=== PATIENT | male | born 1975 | race Caucasian/White ===

== ENCOUNTER → 2018-08-03 | Outpatient (CLI) | payer OTHER ==
--- NOTE | 2018-08-03 09:14 | XR ---
EXAMINATION TYPE: XR KUB DATE OF EXAM: 08/03/2018 COMPARISON: NONE HISTORY: Follow-up kidney stones TECHNIQUE: One view abdominal series FINDINGS: The osseous structures are intact. The bowel gas pattern is nonspecific. Renal outlines are limited by overlying bowel content. Right kidney: Right renal outline is obscured by overlying bowel content with at least 2 tiny punctat e 1 to 2 mm calcifications suspected overlying the lower pole. Left kidney: No definite calcifications are seen. There is a calcific density lateral to the L4 trans verse process on the left which is felt to be below the renal outline and lateral to the expected cou rse of the ureter. Pelvis: Multiple pelvic calcifications are seen. Lesions on the right are felt to be compatible phleb oliths. There is a 2 mm calcification the region of the left UVJ. Next IMPRESSION: 1. Nonspecific abdomen. 2. Findings are suspicious for a lower pole right renal calculus. Calcific density on the left appear s to be inferior to the left renal outline. 3. Possible 2 mm left UVJ calcification.
== END | disposition home or self-care (01) ==
LOC: RADXRMAIN 08:49
PROVIDERS: ATTEND Urology
DX: N20.1 Calculus of ureter (principal)
CPT/HCPCS: 74018

== ENCOUNTER → 2018-09-15 | Outpatient (CLI) | payer OTHER ==
--- NOTE | 2018-09-15 09:38 | XR ---
EXAMINATION TYPE: XR KUB DATE OF EXAM: 09/15/2018 COMPARISON: 08/03/2018 INDICATION: Ureteral calculus TECHNIQUE: Single view abdomen supine view FINDINGS: There is a normal bowel gas pattern. Psoas margins are normal. No organomegaly is present. Phleboliths within the pelvis. No suspicious calcification along the expected ureteral course is evid ent. A tiny calcification in left hemipelvis could be a distal ureteral stone was present previously and is stable in position and size. IMPRESSION: 1. Findings appear stable over the interval. Distal left ureteral vesicle junction stone is not exclu ded. Phleboliths within the differential. Stable.
--- NOTE | 2018-09-15 11:02 | US ---
EXAMINATION TYPE: US kidneys/renal and bladder DATE OF EXAM: 09/15/2018 COMPARISON: NONE CLINICAL HISTORY: N20.1 calculas of kidney R93.4. History of kidney stones and hydronephrosis, left p elvic pain, frequent urination EXAM MEASUREMENTS: Right Kidney: 10.5 x 5.2 x 5.0 cm Left Kidney: 10.9 x 5.9 x 6.6 cm Right Kidney: 0.4cm echogenic focus inferior pole compatible with a renal stone Left Kidney: mild hydronephrosis Bladder: wnl Bilateral Jets seen: yes IMPRESSION: 1. Nonobstructing inferior pole right renal stone. 2. Mild left hydronephrosis.
== END | disposition home or self-care (01) ==
LOC: RADUSWWP 08:13
PROVIDERS: ATTEND Urology
DX: N13.2 Hydronephrosis with renal and ureteral calculous obstruction (principal)
CPT/HCPCS: 74018; 76770

== ENCOUNTER → 2022-09-15 | Outpatient (CLI) | payer OTHER ==
--- NOTE | 2022-09-15 15:10 | XR ---
EXAMINATION TYPE: XR KUB DATE OF EXAM: 09/15/2022 10:23 AM INDICATION: Patient age:Male; 47 years old; Reason for study: N20.0; COMPARISON: 09/15/2017 TECHNIQUE: One radiographic view of the abdomen was obtained. FINDINGS: The bowel gas pattern is nonspecific without dilated loops of small or large bowel. There i s no evidence for organomegaly or pneumoperitoneum. The osseous structures are intact. Fecal materi al and gas are demonstrated throughout the colon and rectum. Multiple calcifications project over the lower pelvis. One measuring 4 mm is new from prior in 2019. IMPRESSION: Multiple calcifications project over the lower pelvis. At least one is new measuring up to 4 mm. Thes e may or may not be within the collecting system. Complete evaluation with CT renal stone protocol co uld provide further characterization and localization.
== END | disposition home or self-care (01) ==
LOC: RADXRMAIN 10:10
PROVIDERS: ATTEND Urology
DX: R31.1 Benign essential microscopic hematuria (principal); N28.89 Other specified disorders of kidney and ureter
CPT/HCPCS: 74018

== ENCOUNTER → 2022-10-12 | Outpatient (CLI) | payer OTHER ==
--- NOTE | 2022-10-12 11:38 | XR ---
EXAMINATION TYPE: XR KUB DATE OF EXAM: 10/12/2022 Comparison: 09/15/2022 Clinical History: 47-year-old male N20.1 CALCULUS OF URETER Findings: Rounded calcifications in the pelvis. An elongated 4 mm calcification may have moved slightly more me dially compared to prior exam. Nonobstructive bowel gas pattern. No significant stool burden. Impression: An elongated 4 mm calcification in the right side of the pelvis may have moved slightly.
== END | disposition home or self-care (01) ==
LOC: LABWHC1 08:12
PROVIDERS: ATTEND Urology
DX: M61.9 Calcification and ossification of muscle, unspecified (principal)
CPT/HCPCS: 74018

== ENCOUNTER → 2024-05-09 | Outpatient (CLI) | payer OTHER ==
[2024-05-09 16:54] LABS: BUN/Creat Ratio 15.44 Ratio (12.00-20.00); Blood Urea Nitrogen 13.9 mg/dL (9.0-27.0); Calcium 9.4 mg/dL (8.7-10.3); Chloride 102 mmol/L (96-109); Glucose 146 mg/dL (70-110); Potassium 4.6 mmol/L (3.5-5.5); Sodium 138 mmol/L (135-145)
[2024-05-09 17:23] LABS: HCT 46.4 % (39.6-50.0); HGB 15.6 g/dL (13.0-17.0); MCH 33.2 pg (27.0-32.0); MCHC 33.6 g/dL (32.0-37.0); MCV 98.7 FL (80.0-97.0); Mean Platelet Volume 10.8 FL (9.5-12.2); NRBC Per 100 WBC 0 X 10*3/uL (0.00-0.01); Platelet Count 212 X 10*3/uL (140-440); RDW 12.2 % (11.5-14.5); WBC 5.75 X 10*3/uL (4.50-10.00)
== END | disposition home or self-care (01) ==
LOC: LABPAT 10:29
PROVIDERS: ATTEND Urology
DX: Z01.818 Encounter for other preprocedural examination (principal)
CPT/HCPCS: 80048; 85027

== ENCOUNTER → 2024-05-09 | Outpatient (CLI) | payer OTHER ==
--- NOTE | 2024-05-09 08:44 | XR ---
EXAMINATION TYPE: XR KUB DATE OF EXAM: 05/09/2024 8:38 AM COMPARISON: 10/12/2022 CLINICAL INDICATION: Male, 49 years old with history of N20.1 CALCULUS OF URETER; [facility] TECHNIQUE: One radiographic view of the abdomen was obtained. FINDINGS: The bowel gas pattern is nonspecific without dilated loops of small or large bowel. . Fecal material and gas are demonstrated throughout the colon and rectum. There is no evidence for organome erick or pneumoperitoneum. No acute osseous process. No abnormal calcifications are present. IMPRESSION: Nonspecific bowel gas pattern without radiographic evidence for acute process. [facility], , 05/09/2024 8:42 AM
== END | disposition home or self-care (01) ==
LOC: RADXRMAIN 08:20
PROVIDERS: ATTEND Urology
DX: N20.1 Calculus of ureter (principal)
CPT/HCPCS: 74018

== ENCOUNTER 2024-05-10 09:46 | Day surgery (SDC) | payer OTHER ==
--- NOTE | 2024-05-09 20:01 | P.GSHP ---
History of Present Illness H&P Date: 05/09/24 Chief Complaint: Right renal colic The patient is a 49-year-old white male with a history of calcium oxalate urolithiasis. For the past month, he has experienced intermittent flank pain radiating to the right testicle. This has been associated with nausea and vomiting. He has recently experienced penile discomfort at the end of micturition. KUB x-ray shows a small right distal ureteral calculus at the ureterovesical junction. In retrospect, the calculus was visible on a 2022 KUB x-ray, 1 to 2 cm proximal to its current location. The patient was offered the options of medical expulsion therapy, ureteroscopic removal of the calculus, and ESWL. After weighing the pros and cons of each approach, he has elected to undergo ureteroscopic removal of the calculus and comes for this reason. - Constitutional Constitutional: Denies chills, Denies fever - Gastrointestinal Gastrointestinal: Reports nausea, Reports vomiting - Genitourinary (Male) Genitourinary: Reports dysuria, Reports flank pain, Reports kidney stones, Denies hematuria Past Medical History Additional Past Medical History / Comment(s): kidney stones currently, and hx of. History of Any Multi-Drug Resistant Organisms: None Reported Past Surgical History: Tonsillectomy Additional Past Surgical History / Comment(s): cystoscopy, Past Anesthesia/Blood Transfusion Reactions: Postoperative Nausea & Vomiting (PONV) Smoking Status: Never smoker - Past Family History Father Additional Family Medical History / Comment(s): prostate cancer Medications and Allergies Home Medications Medication Instructions Recorded Confirmed Type No Known Home Medications 05/09/24 05/09/24 History Allergies Allergy/AdvReac Type Severity Reaction Status Date / Time No Known Allergies Allergy Verified 05/09/24 10:48 Surgical - Exam - General well developed, well nourished, no distress - Respiratory normal respiratory effort - Psychiatric oriented to time, oriented to person, oriented to place, speech is normal, memory intact Results - Imaging Abdominal x-ray: report reviewed, image reviewed Assessment and Plan (1) Calculus of ureter Status: Acute Code(s): N20.1 - CALCULUS OF URETER SNOMED Code(s): 70371218 Plan: Cystoscopy, right ureteroscopy with Holmium laser lithotripsy and possible stone basketing, possible right ureteral stent insertion. The procedure has been reviewed in detail with the patient. He has been made aware of potential risks, which include anesthesia, bleeding, infection, inability to remove the calculus, and ureteral injury.
[~2024-05-10 09:46] MED LIST: HYDROmorphone 0.5 MG/0.5 ML SYRINGE IVP PRN; LIDOCAINE 1% (10MG/ML) FOR IV START INTRADERMA PRN; droPERidol 5 MG/2 ML VIAL IVP ONE
[2024-05-10] MEDS: IV FLUID CONTINUATION 1,000 ML IV ONE (10:15)
--- NOTE | 2024-05-10 10:30 | XR ---
EXAMINATION TYPE: XR KUB DATE OF EXAM: 05/10/2024 10:09 AM COMPARISON: 05/09/2024 CLINICAL INDICATION: Male, 49 years old with history of calcuus, TECHNIQUE: XR KUB view(s) obtained. FINDINGS: There is a normal bowel gas pattern. Psoas margins are normal. No organomegaly is present. There may be a distal right ureteral stone measuring 0.7 cm. Phleboliths are present on the right. Pu nctate calcification is present on the left. Findings appear stable from comparison IMPRESSION: 1. Distal ureteral stones not excluded. 2. Multiple phleboliths are present on the right. [facility], , 05/10/2024 10:28 AM
[2024-05-10] MEDS: ONDANSETRON 4 MG/2 ML VIAL IVP ONE (10:32)
[2024-05-10] MEDS: DEXAMETHASONE SOD PHOSPHATE 4 MG/ML 1 ML VIAL IV ONE (10:32)
[2024-05-10] MEDS: LACTATED RINGERS 1,000 ML IV SCH (10:32)
[2024-05-10] MEDS: FAMOTIDINE 20 MG/2 ML VIAL IV STA (10:47)
[2024-05-10] MEDS ORDERED: fentaNYL (PF) 50 MCG/ML 2 ML AMP ONE (12:02)
[2024-05-10] MEDS ORDERED: LIDOCAINE 1% INJ 10MG/ML (20 ML MDV) ONE (12:02)
[2024-05-10] MEDS ORDERED: PROPOFOL 10 MG/ML 20 ML VIAL IV ONE (12:02)
[2024-05-10] MEDS ORDERED: MIDAZOLAM 2 MG/2 ML VIAL ONE (12:02)
--- NOTE | 2024-05-10 12:47 | P.OP ---
Date of Procedure: 05/10/24 Preoperative Diagnosis: Right ureteral calculus Postoperative Diagnosis: Same Procedure(s) Performed: Cystoscopy, right ureteroscopy with Holmium laser lithotripsy Anesthesia: GAURANG Surgeon: Slava Pathak Estimated Blood Loss (ml): 5 IV fluids (ml): 400 Pathology: other (Right ureteral calculus fragments, sent for chemical analysis) Condition: stable Disposition: PACU Indications for Procedure: The patient is a 49-year-old white male with a history of calcium oxalate urolithiasis. For the past month, he has experienced intermittent flank pain radiating to the right testicle. This has been associated with nausea and vomiting. He has recently experienced penile discomfort at the end of micturition. KUB x-ray shows a small right distal ureteral calculus at the ureterovesical junction. In retrospect, the calculus was visible on a 2022 KUB x-ray, 1 to 2 cm proximal to its current location. The patient was offered the options of medical expulsion therapy, ureteroscopic removal of the calculus, and ESWL. After weighing the pros and cons of each approach, he has elected to undergo ureteroscopic removal of the calculus and comes for this reason. Operative Findings: Right distal ureteral calculus, fragmented successfully. Description of Procedure: The patient was taken to the operating room and placed in the dorsolithotomy position, with legs supported in Shane stirrups. The external genitalia was prepped and draped sterilely. The 30 lens was used to introduce the 21-[place] Holloway cystoscopic sheath through the urethra and into the bladder under direct vision. The prostatic urethra showed evidence of mild lateral lobe enlargement. The bladder was examined in its entirety. Both ureteral orifices were normal anatomic location and configuration, and clear urine effluxed from both. No tumors or foreign bodies were seen. The Holloway semirigid ureteroscope was advanced into the bladder, and the right ureteral orifice was cannulated. The ureteroscope was slowly advanced under direct vision. The calculus was seen near the level of the iliac vessels. The 272 micron Holmium laser probe was passed through the ureteroscope, and lithotripsy was performed utilizing a dusting mode. The calculus fragmented, and fragments passed distally into the bladder. The ureteroscope was then advanced up to the UPJ. No additional calculi were seen, and pullout ureteroscopy showed no evidence of ureteral trauma. After removing the ureteroscope, the cystoscope was replaced into the bladder under direct vision, and calculus fragments were drained from the bladder. These were saved and sent for chemical analysis. The bladder was emptied and the cystoscope removed. The patient tolerated the procedure well and was taken to the recovery room in stable condition. SHEBA BROWNLEE Report: Procedure Acuity: Semi-Urgent Stone Size and Location: 3 x 6 mm, right distal ureter Ureteral Dilation: No Ureteral Access Sheath Used: No Stone Sent for Analysis: Yes All Stones/Fragments Were Removed with a Basket: No Complications: No Preoperative Antibiotics Given: Yes Stent Placed: No Discharge Medications: Toradol
[2024-05-10 12:55] VITALS: TEMP 98
[2024-05-10 14:31] VITALS: BP 138/95; PULSE 75; RESP 16
== END 2024-05-10 14:38 | disposition home or self-care (01) ==
LOC: OR 09:46
PROVIDERS: ATTEND Urology
DX: N20.1 Calculus of ureter (principal); Z90.89 Acquired absence of other organs; Z98.890 Other specified postprocedural states
CPT/HCPCS: 52353; 82365; 74018; J2250; J1100; J0690; J2405; J2003; J3010; J3490; J2704